=== PATIENT | male | born 1970 | race Caucasian/White ===

== ENCOUNTER 2022-09-03 15:41 | Emergency (ER) | payer OTHER ==
[~2022-09-03] VITALS: Ht 188 cm; Wt 104.0 kg
[2022-09-03 16:02] VITALS: BP 193/118
[2022-09-03] MEDS ORDERED: AMLO10TA PO (17:50)
== END 2022-09-03 18:18 | disposition home or self-care (01) ==
LOC: ER 15:42
DX: I10 Essential (primary) hypertension (principal); Z76.0 Encounter for issue of repeat prescription; Z79.899 Other long term (current) drug therapy
CPT/HCPCS: 99281; 99283